=== PATIENT | female | born 1980 | race Caucasian/White ===

== ENCOUNTER 2016-12-07 13:24 | Outpatient (CLI) | payer MEDICAID | END 2016-12-07 13:25 | disposition home or self-care (01) | DX: M77.32 Calcaneal spur, left foot (principal) ==

== ENCOUNTER 2017-04-23 13:52 | Emergency (ER) | payer MEDICAID ==
[2017-04-23] MEDS ORDERED: LIDOCAINE PATCH 5% TOP STA (14:28)
[2017-04-23] MEDS ORDERED: oxyCOD/ACETAMIN 5 MG/325 MG TABLET PO STA (14:28)
[2017-04-23] MEDS ORDERED: oxyCOD/ACETAMIN 5 MG/325 MG TABLET PO ONE (14:30)
[2017-04-23] MEDS ORDERED: LIDOCAINE PATCH 5% TOP ONE (14:30)
--- NOTE | 2017-04-23 14:49 | ED Physician Documentation ---
History of Present Illness - Stated complaint Stated Complaint: BACK PX - Chief complaint Chief Complaint: Back Pain - Additonal information Additional information: hx from pt 36 y/o f was doing a work out class with a kettle ball on Wednesday started to feel pain in her back pain worsened over the week could not do class Wed went to chiropractor s relief tried NSAID and lido patches motrin and flexeril and ice s relief pain iw right low back, worse with movement, rad to upper right buttock, no numbness or weakness, no urinary incont, no saddle anesthesia denies preg hx narcotic use though a pain clinic, off narcotics for a year, her MALENA confirms this, she weaned herself and does not feel one or two days of pain control will cause a set back, Review of Systems Constitutional: denies: Fever GI: denies: Abdominal Pain : denies: Now EGA Musculoskeletal: reports: Back pain Neurologic: denies: Focal weakness, Numbness PD PAST MEDICAL HISTORY - Past Medical History Past Medical History: No - Past Surgical History Past Surgical History: Yes General: Cholecystectomy Ortho: Shoulder arthroplasty - Present Medications Home Medications: Ambulatory Orders Medication Instructions Recorded Confirmed Ibuprofen [Motrin] 600 mg PO Q6H PRN 04/28/13 04/28/13 Carisoprodol [Soma] 350 mg PO Q8H PRN #15 tablet 04/23/17 Cyclobenzaprine [Flexeril] 04/23/17 Hydroxyzine Pamoate 04/23/17 Ibuprofen [Motrin] 800 mg PO TIDWM PRN #20 tablet 04/23/17 Lidocaine Patch 5% [Lidoderm Patch] 1 each TOP DAILY PRN #10 patch 04/23/17 Metoprolol Succinate 04/23/17 Oxycodone HCl/Acetaminophen 1 each PO Q6HR PRN #8 tablet 04/23/17 [Percocet 5-325 mg Tablet] Venlafaxine [Effexor] 37.5 04/23/17 - Allergies Allergies/Adverse Reactions: Allergies Allergy/AdvReac Type Severity Reaction Status Date / Time azithromycin [From Zithromax] Allergy Intermediate Respiratory Verified 14:09 carbamazepine [From Tegretol] Allergy Intermediate Rash Verified 04/23/17 14:09 erythromycin base Allergy Intermediate Respiratory Verified 04/23/17 14:09 [Erythromycin Base] latex Allergy Intermediate Rash Verified 04/23/17 14:09 - Social History Does the pt smoke?: Yes Smoking Status: Current every day smoker Does the pt drink ETOH?: No Does the pt have substance abuse?: No - Immunizations Immunizations are current?: Yes - POLST Patient has POLST: No PD ED PE NORMAL - Vitals Vital signs reviewed: Yes - General General: Alert and oriented X 3 - HEENT HEENT: PERRL - Neck Neck: Supple, no meningeal sign - Cardiac Cardiac: RRR - Respiratory Respiratory: No respiratory distress, Clear bilaterally - Abdomen Abdomen: Soft, Non tender - Back Back: No spinal TTP (and no warmth erythema or swelling), Other (right low back TTP and very limited ROM) - Derm Derm: Normal color - Neuro Neuro: Alert and oriented X 3, No motor deficit, No sensory deficit, Other ( diff to assess strenth as all movement causes severe pain but there is at least some effort for hip flex knee ext foor dorsi planta and great toe ext, no clonus , denies saddle anesthesia) Results - Vitals Vitals: Vital Signs - 24 hr 04/23/17 04/23/17 13:56 15:07 Temperature 36.6 C 36.8 C Heart Rate 98 96 Respiratory 18 20 Rate Blood Pressure 158/97 H 125/75 O2 Saturation 99 98 Oxygen O2 Source Room air PD MEDICAL DECISION MAKING - ED course ED course: no MALENA or narcotic WMPM report for last yr d/w pt at length - she has already tried NSAID, flexeril, NSAID and lido patches ice heat etc s relief she does not think narcotics will cause a relapse I am very hesitant to prescribe a naroctic but is in severe pain barely able to get into the chair and has already tried all my usual recommendations will write for very small amt and change flexeril to soma Departure - Departure Disposition: 01 Home, Self Care Clinical Impression: Back pain Qualifiers: Back pain location: low back pain Chronicity: acute Back pain laterality: right Sciatica presence: without sciatica Qualified Code(s): M54.5 - Low back pain Condition: Good Instructions: ED Low Back Pain Injury Prescriptions: Oxycodone HCl/Acetaminophen [Percocet 5-325 mg Tablet] 1 each PO Q6HR PRN #8 tablet PRN Reason: Severe Pain Lidocaine Patch 5% [Lidoderm Patch] 1 each TOP DAILY PRN #10 patch PRN Reason: Pain Ibuprofen [Motrin] 800 mg PO TIDWM PRN #20 tablet PRN Reason: Pain Carisoprodol [Soma] 350 mg PO Q8H PRN #15 tablet PRN Reason: muscle spasm Comments: `Please follow up with your PMD about your blood pressure - it was high today Forms: Activity restrictions Discharge Date/Time: 04/23/17 15:19
[2017-04-23 15:08] VITALS: BP 125/75
[2017-04-23] MEDS ORDERED: DEXAMETHASONE 10 MG/ML VIAL PO STA (15:11)
[2017-04-23] MEDS ORDERED: DEXAMETHASONE 10 MG/ML VIAL ONE (15:11)
== END 2017-04-23 15:19 | disposition home or self-care (01) ==
LOC: ED 13:52
DX: M54.5 Low back pain (principal); F17.200 Nicotine dependence, unspecified, uncomplicated
CPT/HCPCS: 99283; A9270

== ENCOUNTER 2017-12-08 20:33 | Emergency (ER) | payer MEDICAID ==
[2017-12-08 20:43] VITALS: BP 153/85
--- NOTE | 2017-12-08 22:23 | ED Physician Documentation ---
History of Present Illness - Stated complaint Stated Complaint: HEEL PX - Chief complaint Chief Complaint: Ext Problem - History obtained from History obtained from: Patient (pt states that she has known heel spurs. she states that she has had pain on the bottom of her foot for the past couple days. worse in the AM, worse afte sitting. no fevers. no trauma) Review of Systems Skin: reports: Rash, Lesions Musculoskeletal: reports: Other (foot pain with walking) Neurologic: reports: Other (no numbness or tingling to her foot.). denies: Numbness PD PAST MEDICAL HISTORY - Past Medical History Past Medical History: No - Past Surgical History Past Surgical History: Yes General: Cholecystectomy Ortho: Shoulder arthroplasty - Present Medications Home Medications: Ambulatory Orders Medication Instructions Recorded Confirmed Ibuprofen [Motrin] 600 mg PO Q6H PRN 04/28/13 04/28/13 Carisoprodol [Soma] 350 mg PO Q8H PRN #15 tablet 04/23/17 Cyclobenzaprine [Flexeril] 04/23/17 Ibuprofen [Motrin] 800 mg PO TIDWM PRN #20 tablet 04/23/17 Lidocaine Patch 5% [Lidoderm Patch] 1 each TOP DAILY PRN #10 patch 04/23/17 Metoprolol Succinate 04/23/17 Oxycodone HCl/Acetaminophen 1 each PO Q6HR PRN #8 tablet 04/23/17 [Percocet 5-325 mg Tablet] Venlafaxine [Effexor] 37.5 04/23/17 hydrOXYzine pamoate [Hydroxyzine 04/23/17 Pamoate] - Allergies Allergies/Adverse Reactions: Allergies Allergy/AdvReac Type Severity Reaction Status Date / Time azithromycin [From Zithromax] Allergy Intermediate Respiratory Verified 14:09 carbamazepine [From Tegretol] Allergy Intermediate Rash Verified 04/23/17 14:09 erythromycin base Allergy Intermediate Respiratory Verified 04/23/17 14:09 [Erythromycin Base] latex Allergy Intermediate Rash Verified 04/23/17 14:09 - Social History Does the pt smoke?: Yes Smoking Status: Current every day smoker Does the pt drink ETOH?: No Does the pt have substance abuse?: No - Immunizations Immunizations are current?: Yes - POLST Patient has POLST: No PD ED PE NORMAL - General General: Alert and oriented X 3, No acute distress - Cardiac Cardiac: Strong equal pulses (DP) - Respiratory Respiratory: No respiratory distress - Derm Derm: Normal color, No rash - Extremities Extremities: No edema. No: No tenderness to palpate (on the plantar aspect of her foot. ) - Neuro Neuro: Other (sensation intact to light touch to her foot. ) - Psych Psych: Normal mood, Normal affect Results - Vitals Vitals: Vital Signs - 24 hr 12/08/17 20:39 Temperature 36.8 C Heart Rate 101 H Respiratory 17 Rate Blood Pressure 153/85 H O2 Saturation 99 Oxygen O2 Source Room air PD MEDICAL DECISION MAKING - ED course Complexity details: considered differential, d/w patient ED course: pt with hx and PE c/W plantar fasciitis. We discussed treatments. no indication for x-rays. pt to follow up with her PCM. Departure - Departure Disposition: Home, Self Care Clinical Impression: Plantar fasciitis Condition: Good Instructions: Plantar Fasciitis, Plantar Fasciitis Tx Follow-Up: Abi Bellamy ARNP [Primary Care Provider] - Comments: Return to the ER for any new or worsening symptoms, Discharge Date/Time: 12/08/17 22:25
== END 2017-12-08 22:25 | disposition home or self-care (01) ==
LOC: ED 20:33
DX: M72.2 Plantar fascial fibromatosis (principal); F17.200 Nicotine dependence, unspecified, uncomplicated
CPT/HCPCS: 99282; 99283

== ENCOUNTER 2019-01-27 11:44 | Outpatient (CLI) | payer MEDICAID ==
[2019-01-27 12:06] LABS: BASOPHILS # (AUTO) 0.1 10^3/uL (0.0-0.1); BASOPHILS % (AUTO) 1.2 %; EOSINOPHILS % (AUTO) 0.5 %; HGB - HEMOGLOBIN 14.2 g/dL (12.0-16.0); LYMPHOCYTES # (AUTO) 2.3 10^3/uL (1.5-3.5); LYMPHOCYTES % (AUTO) 22.4 %; MEAN CORPUSCULAR HEMOGLOBIN 31.1 pg (27.0-31.0); MEAN CORPUSCULAR HGB CONC 35.5 g/dL (32.0-36.0); MEAN CORPUSCULAR VOLUME 87.7 fL (81.0-99.0); MEAN PLATELET VOLUME 7.9 fL (7.9-10.8); MONOCYTES # (AUTO) 0.5 10^3/uL (0.0-1.0); MONOCYTES % (AUTO) 4.8 %; NEUTROPHILS # (AUTO) 7.4 10^3/uL (1.5-6.6); NEUTROPHILS % (AUTO) 71.1 %; PLT - PLATELET COUNT 298 10^3/uL (130-450); RED BLOOD COUNT 4.57 10^6/uL (4.20-5.40); WHITE BLOOD COUNT 10.3 x10^3/uL (4.8-10.8)
[2019-01-27 12:26] LABS: ALBUMIN 4.6 g/dL (3.2-5.5); ALBUMIN/GLOBULIN RATIO 1.5 (1.0-2.2); BILIRUBIN,TOTAL 0.7 mg/dL (0.2-1.0); CREATININE 0.6 mg/dL (0.4-1.0); TOTAL PROTEIN 7.6 g/dL (6.7-8.2)
[2019-01-27 12:46] LABS: CREATININE,URINE 50.6 mg/dL
[2019-01-27 13:14] LABS: TOTAL PROTEIN,URINE TIMED < 6 mg/dL
[2019-01-27 13:52] LABS: CALCIUM 9.3 mg/dL (8.5-10.3)
[2019-01-28 13:02] LABS: HEPATITIS B SURFACE ANTIGEN NON-REACTIVE (NON-REACTIVE); HEPATITIS C ANTIBODY NON-REACTIVE (NON-REACTIVE)
[2019-01-28 17:41] LABS: HIV AG/AB 4TH GEN NON-REACTIVE (NON-REACTIVE)
== END 2019-01-27 11:45 | disposition home or self-care (01) ==
LOC: LAB 11:44
PROVIDERS: ATTEND Obstetrics & Gynecology
DX: Z36.89 Encounter for other specified antenatal screening (principal)
CPT/HCPCS: 36415; 80053; 81599; 82570; 84156; 85025; 86592; 86762; 86787; 86803; 86850; 86900; 86901; 87340; 87389

== ENCOUNTER 2019-02-20 11:14 | Outpatient (CLI) | payer MEDICAID | END 2019-02-20 11:15 | disposition home or self-care (01) | LOC: LAB 11:14 | PROVIDERS: ATTEND Obstetrics & Gynecology | DX: Z13.71 Encounter for nonprocreative screening for genetic disease carrier status (principal); Z36.8A Encounter for antenatal screening for other genetic defects | CPT/HCPCS: 36415; 81220; 81243; 81329; 81599; 83021 ==

== ENCOUNTER 2019-02-24 23:25 | Outpatient (CLI) | payer MEDICAID ==
--- NOTE | 2019-02-25 00:44 | Ultrasound Report ---
Reason: TEST POSITIVE, HTN Procedure Date: 02/24/2019 Accession Number: [id number] / [id number] Procedure: US - OB First Trimester CPT Code: FULL RESULT: EXAM: LIMITED OBSTETRICAL ULTRASOUND EARLY SECOND TRIMESTER EXAM DATE: 02/24/2019 11:35 PM. CLINICAL HISTORY: TEST POSITIVE, HTN. COMPARISON: None. TECHNIQUE: Real-time sonographic evaluation of the fetus performed by the manager telecom. Multiple medical representative static images were saved for review. DATING: Established EGA 15 weeks 0 days with MASON 08/18/2019 based on LMP. EGA 14 weeks 0 day with MASON 08/25/2019 based on the current ultrasound. GENERAL EVALUATION Watson . Cardiac activity: 152 bpm. movement: Visualized. Presentation: Cephalic. Placenta: Posterior position. No evidence for previa. Amniotic fluid: Subjectively normal. BIOMETRY Bi-Parietal Diameter (BPD): 2.64 cm, 14 weeks 4 days Head Circumference (HC): 9.53 cm, 14 weeks 2 days Abdominal Circumference (AC): 7.45 cm, 13 weeks 6 days Femur Length (FL): 1.11 cm, 13 weeks 2 days ANATOMY Limited visualization of anatomy appears unremarkable. MATERNAL STRUCTURES Uterus: 1.7 cm posterior intramural leiomyoma. Cervix: Long and closed. Right ovary/adnexa: Unremarkable. Left ovary/adnexa: Unremarkable. Free fluid: None. IMPRESSION: 1. Watson live intrauterine with gestational age 15 weeks 0 days based on LMP 2. size is within expected limits for assigned dating. 3. Normal early second trimester anatomy. No anatomic abnormalities are seen at this time. Note: Detailed anatomic survey at 18-22 weeks is recommended for all fetuses evaluated prior to 18 weeks, as some structural abnormalities may be inapparent at earlier gestational ages. ASHA The call report notification system was initiated by Dr. Lopez Stafford at 12:37 AM on 02/25/2019. The above call report findings were discussed with Coco Rodrigues CNM by Dr. Lopez Stafford at 12:43 AM on 02/25/2019.
== END 2019-02-24 23:26 | disposition home or self-care (01) ==
LOC: DI 23:25
PROVIDERS: ATTEND Registered Nurse
DX: Z32.01 Encounter for pregnancy test, result positive (principal); O16.2 Unspecified maternal hypertension, second trimester; Z3A.15 15 weeks gestation of pregnancy
CPT/HCPCS: 76801

== ENCOUNTER 2019-03-20 10:23 | Outpatient (CLI) | payer MEDICAID | END 2019-03-20 10:24 | disposition home or self-care (01) | LOC: LAB 10:23 | PROVIDERS: ATTEND Obstetrics & Gynecology | DX: Z36.8A Encounter for antenatal screening for other genetic defects (principal) | CPT/HCPCS: 36415; 81599; 82105 ==

== ENCOUNTER 2019-04-07 11:13 | Outpatient (CLI) | payer MEDICAID ==
--- NOTE | 2019-04-07 14:01 | Ultrasound Report ---
Reason: ENCOUNTER FOR OTHER SPECIFIED SCREENING Procedure Date: 04/07/2019 Accession Number: [id number] / [id number] Procedure: US - OB Detailed Eval CPT Code: FULL RESULT: EXAM: COMPLETE OBSTETRICAL ULTRASOUND EXAM DATE: 04/07/2019 12:30 PM. CLINICAL HISTORY: anatomic survey. COMPARISON: OB FIRST TRIMESTER 02/24/2019 11:35 PM. TECHNIQUE: Real-time sonographic evaluation of the fetus performed by the heel shaver. Multiple sales promotion representative static images were saved for review. DATING: Established EGA 20 weeks 1 day with MASON 08/24/2019 based on working obstetric date. EGA 21 weeks 0 days with MASON 08/18/2019 based on LMP. EGA 19 weeks 6 days with MASON 08/26/2019 based on the current ultrasound. GENERAL EVALUATION Watson . Cardiac activity: 159 bpm. movement: Visualized. Presentation: Transverse. Placenta: Posterior position. No evidence for previa. Umbilical cord: 3 vessel cord. Central placental cord origin. Amniotic fluid: Subjectively normal. MVP 3.8 cm. BIOMETRY Bi-Parietal Diameter (BPD): 4.6 cm, 19 weeks 5 days Head Circumference (HC): 16.5 cm, 19 weeks 2 days Abdominal Circumference (AC): 16 cm, 21 weeks 1 day Femur Length (FL): 3.0 cm, 19 weeks 1 day Estimated Weight: 330 g, 41st percentile for 20 weeks 1 day. ANATOMY The intracranial structures, profile, face/nose/lips, spine, 4 chamber heart and outflow tracts, abdominal wall and cord insertion, diaphragm, kidneys, bladder, and extremities were visualized and demonstrate no abnormality. While stomach visualization is limited on this examination, the 02/24/2019 study demonstrates the cardio-gastric relationship to be normal. MATERNAL STRUCTURES Uterus: Unremarkable. Cervix: Long and closed. Transabdominal length 4.1 cm. Right ovary/adnexa: Unremarkable. Left ovary/adnexa: Unremarkable. Free fluid: None. IMPRESSION: 1. Watson live intrauterine with gestational age 20 weeks 1 day based on working obstetric due date. 2. Estimated weight is within expected limits for assigned dating. 3. Normal anatomic survey. No anatomic abnormalities are detected at this time. RADIA
== END 2019-04-07 11:14 | disposition home or self-care (01) ==
LOC: DI 11:13
PROVIDERS: ATTEND Obstetrics & Gynecology
DX: Z36.89 Encounter for other specified antenatal screening (principal)
CPT/HCPCS: 76811

== ENCOUNTER 2019-04-17 08:00 | Outpatient (CLI) | payer MEDICAID ==
[2019-04-17 22:29] LABS: CANDIDA GROUP DNA POSITIVE (NEGATIVE); CANDIDA KRUSEI DNA NEGATIVE (NEGATIVE); TRICHOMONAS VAGINALIS DNA NEGATIVE (NEGATIVE)
== END 2019-04-17 23:59 | disposition home or self-care (01) ==
LOC: LAB.R 08:00
PROVIDERS: ATTEND Nurse Practitioner Obstetrics & Gynecology
DX: N76.0 Acute vaginitis (principal); R82.79 Other abnormal findings on microbiological examination of urine
CPT/HCPCS: 87086; 87661; 87801

== ENCOUNTER 2019-05-22 12:29 | Outpatient (CLI) | payer MEDICAID ==
[2019-05-22 13:28] LABS: HGB - HEMOGLOBIN 11.3 g/dL (12.0-16.0); MEAN CORPUSCULAR HEMOGLOBIN 31.9 pg (27.0-31.0); MEAN CORPUSCULAR HGB CONC 35.8 g/dL (32.0-36.0); MEAN CORPUSCULAR VOLUME 89.3 fL (81.0-99.0); MEAN PLATELET VOLUME 9.9 fL (7.9-10.8); RED BLOOD COUNT 3.54 10^6/uL (4.20-5.40); RED CELL DISTRIBUTION WIDTH 12.1 % (12.0-15.0); WHITE BLOOD COUNT 10.9 x10^3/uL (4.8-10.8)
[2019-05-22 13:40] LABS: CREATININE,URINE 67.5 mg/dL; PROTEIN/CREATININE RATIO,URINE 0.1 (<=0.2)
[2019-05-22 13:44] LABS: CREATININE 0.7 mg/dL (0.4-1.0); URIC ACID 4.6 mg/dL (2.6-7.2)
== END 2019-05-22 12:30 | disposition home or self-care (01) ==
LOC: LAB 12:29
PROVIDERS: ATTEND Nurse Practitioner Obstetrics & Gynecology
DX: O09.90 Supervision of high risk pregnancy, unspecified, unspecified trimester (principal); Z36.89 Encounter for other specified antenatal screening
CPT/HCPCS: 36415; 82565; 82570; 84156; 84450; 84550; 85027; 86850

== ENCOUNTER 2020-01-05 08:00 | Outpatient (CLI) | payer MEDICAID | END 2020-01-05 23:59 | disposition home or self-care (01) | LOC: LAB.R 08:00 | PROVIDERS: ATTEND Physician Assistant Medical | DX: N32.89 Other specified disorders of bladder (principal); R35.0 Frequency of micturition | CPT/HCPCS: 87086 ==

== ENCOUNTER 2020-02-05 16:47 | Outpatient (CLI) | payer SELFPAY | END 2020-02-05 16:48 | disposition home or self-care (01) | LOC: COV 16:47 | PROVIDERS: ATTEND Family Medicine | DX: R05 Cough (principal); R50.9 Fever, unspecified; Z20.828 Contact with and (suspected) exposure to other viral communicable diseases | CPT/HCPCS: 81599 ==

== ENCOUNTER 2020-10-18 18:19 | Emergency (ER) | payer MEDICAID, OTHER ==
[2020-10-18] MEDS ORDERED: IBUPROFEN 800 MG TABLET PO STA (19:09)
[2020-10-18] MEDS ORDERED: oxyCODONE/ACET 5/325 Prepack 4 PO STA (19:09)
[2020-10-18] MEDS ORDERED: CLINDAMYCIN 150 MG CAPSULE PO STA (19:09)
--- NOTE | 2020-10-18 19:11 | ED Physician Documentation ---
PD HPI HEENT - Stated complaint Stated Complaint: MOUTH PX - Chief complaint Chief Complaint: Heent - History obtained from History obtained from: Patient (2 days of worsening left maxillary dental pain. She had a gingival abscess which popped prior to arrival. Pain is severe. No fevers.) Review of Systems Constitutional: reports: Reviewed and negative Eyes: reports: Reviewed and negative Ears: reports: Reviewed and negative PD PAST MEDICAL HISTORY - Past Medical History Past Medical History: Yes Cardiovascular: Hypertension Respiratory: Asthma - Past Surgical History Past Surgical History: Yes General: Cholecystectomy Ortho: Shoulder arthroplasty - Present Medications Home Medications: Ambulatory Orders Medication Instructions Recorded Confirmed Clindamycin [Cleocin] 300 mg PO Q6H 10 Days capsule 10/18/20 Melatonin/Pyridoxine [Melatonin 5 5 mg PO DAILY 10/18/20 10/18/20 mg Tablet] Oxycodone HCl/Acetaminophen 1 - 2 each PO Q6H PRN #14 tablet 10/18/20 [Percocet 5-325 mg Tablet] - Allergies Allergies/Adverse Reactions: Allergies Allergy/AdvReac Type Severity Reaction Status Date / Time azithromycin [From Zithromax] Allergy Intermediate Respiratory Verified 10/18/20 18:28 carbamazepine [From Tegretol] Allergy Intermediate Rash Verified 10/18/20 18:28 erythromycin base Allergy Intermediate Respiratory Verified 10/18/20 18:28 [Erythromycin Base] latex Allergy Intermediate Rash Verified 10/18/20 18:28 - Social History Does the pt smoke?: Yes Smoking Status: Current every day smoker Does the pt drink ETOH?: No Does the pt have substance abuse?: No Substance Use and Type: Marijuana, CBD oil / Products - Immunizations Immunizations are current?: Yes - POLST Patient has POLST: No PD ED PE NORMAL - Vitals Vital signs reviewed: Yes - General General: Alert and oriented X 3, No acute distress - HEENT HEENT: PERRL, EOMI, Other (Generally poor dentition, there is a left maxillary premolar that is tender. No trismus or sublingual edema. No facial swelling.) - Neck Neck: Supple, no meningeal sign, No bony TTP - Neuro Neuro: Alert and oriented X 3, Normal speech Results - Vitals Vitals: Vital Signs - 24 hr 10/18/20 18:25 Temperature 36.8 C Heart Rate 99 Respiratory 16 Rate Blood Pressure 160/82 H O2 Saturation 100 Oxygen O2 Source Room air Departure - Departure Disposition: Home, Self Care Clinical Impression: Dental abscess Condition: Good Record reviewed to determine appropriate education?: Yes Instructions: ED Abscess Dental Prescriptions: Clindamycin [Cleocin] 300 mg PO Q6H 10 Days capsule Oxycodone HCl/Acetaminophen [Percocet 5-325 mg Tablet] 1 - 2 each PO Q6H PRN #14 tablet PRN Reason: pain Comments: Followup with your dentist as scheduled, return if worse. Do not drink or drive while taking narcotic pain medication. Note that many narcotic pain relievers also contain Tylenol/acetaminophen. Please ensure that your total dose of acetaminophen from all sources does not exceed 3 g (3000 mg) per day. You may get constipated while on this medication. Take a stool softener such as Colace twice a day while you are on it. Also add an [id number] laxative such as senna or MiraLAX on any day that you do not have a bowel movement. If you received a narcotic pain medication or sedative while in the emergency department, do not drive for the next 24 hours.
[2020-10-18 19:14] VITALS: BP 157/91
== END 2020-10-18 19:29 | disposition home or self-care (01) ==
LOC: ED 18:19
DX: K04.7 Periapical abscess without sinus (principal); I10 Essential (primary) hypertension; F17.200 Nicotine dependence, unspecified, uncomplicated
CPT/HCPCS: 99282; 99283; A9270

== ENCOUNTER 2020-12-23 17:07 | Outpatient (CLI) | payer MEDICAID ==
[2020-12-23 20:07] LABS: BASOPHILS % (AUTO) 0.4 %; EOSINOPHILS # (AUTO) 0.1 10^3/uL (0.0-0.7); EOSINOPHILS % (AUTO) 1.3 %; HGB - HEMOGLOBIN 13.3 g/dL (12.0-16.0); LYMPHOCYTES # (AUTO) 2.4 10^3/uL (1.5-3.5); LYMPHOCYTES % (AUTO) 31.3 %; MEAN CORPUSCULAR HEMOGLOBIN 31.6 pg (27.0-31.0); MEAN CORPUSCULAR HGB CONC 35.3 g/dL (32.0-36.0); MEAN CORPUSCULAR VOLUME 89.5 fL (81.0-99.0); MEAN PLATELET VOLUME 9.9 fL (7.9-10.8); MONOCYTES # (AUTO) 0.3 10^3/uL (0.0-1.0); MONOCYTES % (AUTO) 3.6 %; NEUTROPHILS # (AUTO) 4.9 10^3/uL (1.5-6.6); NEUTROPHILS % (AUTO) 63.1 %; PLT - PLATELET COUNT 304 10^3/uL (130-450); RED BLOOD COUNT 4.21 10^6/uL (4.20-5.40); WHITE BLOOD COUNT 7.7 x10^3/uL (4.8-10.8)
[2020-12-23 20:21] LABS: RHEUMATOID FACTOR NEGATIVE (Negative)
[2020-12-23 20:22] LABS: ALBUMIN 4.3 g/dL (3.2-5.5); ALBUMIN/GLOBULIN RATIO 1.9 (1.0-2.2); ALKALINE PHOSPHATASE 56 IU/L (42-121); ALT ALANINE AMINOTRANSFERASE 12 IU/L (10-60); AST ASPARTATE AMINOTRANSFERASE 13 IU/L (10-42); BILIRUBIN,TOTAL 0.5 mg/dL (0.2-1.0); BUN - BLOOD UREA NITROGEN 13 mg/dL (6-20); CALCIUM 9.3 mg/dL (8.5-10.3); CARBON DIOXIDE - CO2 24 mmol/L (21-32); CHLORIDE 104 mmol/L (101-111); CREATININE 0.8 mg/dL (0.4-1.0); GLUCOSE 88 mg/dL (70-100); TOTAL PROTEIN 6.6 g/dL (6.7-8.2)
[2020-12-23 20:53] LABS: CRP - C-REACTIVE PROTEIN < 1.0 mg/dL (0-1.0)
== END 2020-12-23 17:08 | disposition home or self-care (01) ==
LOC: LAB.S 17:07
PROVIDERS: ATTEND Physician Assistant
DX: M35.3 Polymyalgia rheumatica (principal); F41.1 Generalized anxiety disorder; R53.83 Other fatigue; J45.909 Unspecified asthma, uncomplicated; I10 Essential (primary) hypertension; F17.200 Nicotine dependence, unspecified, uncomplicated
CPT/HCPCS: 36415; 80053; 84443; 85025; 85651; 86140; 86200; 86430

== ENCOUNTER 2021-01-13 09:50 | Outpatient (CLI) | payer MEDICAID ==
--- NOTE | 2021-01-13 10:22 | XRAY Report ---
PROCEDURE: Hips 2V BILAT INDICATIONS: HIP PAIN, CHRONIC TECHNIQUE: 3 views of the hip were acquired. COMPARISON: None FINDINGS: Bones: No fractures or dislocations. No suspicious bony lesions. No evidence of avascular necrosis of femoral head. The visualized pelvic ring appears intact. Soft tissues: No suspicious soft tissue calcifications or masses. IMPRESSION: Unremarkable radiographic examination of pelvis and bilateral hips. If indicated, MRI of hips can be done for further evaluation of internal derangement. Reviewed by: Singh Davila MD on 01/13/2021 10:20 AM [facility] Approved by: Singh Davila MD on 01/13/2021 10:20 AM [facility] Station ID: [id number]
== END 2021-01-13 09:51 | disposition home or self-care (01) ==
LOC: DI.S 09:50
PROVIDERS: ATTEND Physician Assistant
DX: M25.552 Pain in left hip (principal); M25.551 Pain in right hip

== ENCOUNTER 2021-03-01 14:37 | Outpatient (CLI) | payer MEDICAID ==
--- NOTE | 2021-03-01 16:55 | Ultrasound Report ---
PROCEDURE: Pelvic w/Transvaginal INDICATIONS: MENORRHAGIA, DYSMENORRHEA TECHNIQUE: Real-time scanning was performed of the pelvic organs, with image documentation. Additional endovagi nal scanning was necessary due to incomplete visualization of the adnexal and endometrial structures by transabdominal scanning. COMPARISON: None. FINDINGS: No pathologic free abdominal or pelvic fluid. Uterus: Uterus is normal in size at 8.9 x 5.1 x 6.0 cm. The endometrium measures 12 mm in combined thickness. Within the posterior aspect of the uterine fundus is a hypoechoic mass consistent with an intramural fibroid measuring 3.0 x 2.0 x 2.6 cm. Ovaries: The right ovary measures 2.1 x 2.0 x 1.8 cm. The left ovary measures 3.4 x 2.7 x 2.7 cm. Wi thin the left ovary is an anechoic cystic lesion measuring 2.0 x 1.7 x 2.0 cm most consistent with a dominant follicle. No suspicious cystic or solid mass. IMPRESSION: Intramural fibroid. Otherwise unremarkable appearance of the uterus. Unremarkable appearance of the ovaries for patient's age. Reviewed by: Jean Manuel DO on 03/01/2021 3:54 PM [facility] Approved by: Jean Manuel DO on 03/01/2021 3:54 PM [facility] Station ID: [id number]
== END 2021-03-01 14:38 | disposition home or self-care (01) ==
LOC: DI 14:37
PROVIDERS: ATTEND Obstetrics & Gynecology
DX: D25.1 Intramural leiomyoma of uterus (principal)

== ENCOUNTER 2021-03-05 08:45 | Outpatient (CLI) | payer MEDICAID | END 2021-03-05 08:46 | disposition home or self-care (01) | LOC: DI 08:45 | PROVIDERS: ATTEND Obstetrics & Gynecology | DX: I35.1 Nonrheumatic aortic (valve) insufficiency (principal) | CPT/HCPCS: 93306 ==

== ENCOUNTER 2021-03-07 15:06 | Outpatient (CLI) | payer MEDICAID | END 2021-03-07 15:07 | disposition home or self-care (01) | LOC: COV 15:06 | PROVIDERS: ATTEND Obstetrics & Gynecology | DX: Z01.812 Encounter for preprocedural laboratory examination (principal); N92.0 Excessive and frequent menstruation with regular cycle; N94.6 Dysmenorrhea, unspecified; Z20.822 Contact with and (suspected) exposure to COVID-19 ==

== ENCOUNTER 2021-03-20 08:00 | Outpatient (CLI) | payer MEDICAID ==
[2021-03-21 13:10] LABS: BILIRUBIN,URINE NEGATIVE (NEGATIVE); GLUCOSE, URINE (UA) NEGATIVE (NEGATIVE); KETONES,URINE (UA) NEGATIVE (NEGATIVE); LEUKOCYTE ESTERASE, URINE NEGATIVE (NEGATIVE); NITRITE,URINE NEGATIVE (NEGATIVE); OCCULT BLOOD,URINE TRACE-LYSE (NEGATIVE); PH,URINE 7.5 PH (5.0-7.5); PROTEIN,URINE NEGATIVE (NEGATIVE); UROBILINOGEN,URINE 0.2 (NORMAL) E.U./dL (NORMAL)
[2021-03-21 13:11] LABS: CLARITY,URINE HAZY (CLEAR)
[2021-03-21 13:31] LABS: AMORPHOUS SEDIMENT,UR Few /LPF; BACTERIA,URINE Rare /HPF (None Seen); MUCUS,URINE Few Strands; RBC,URINE 0-5 /HPF (0-5); SQUAMOUS EPITHELIAL CELL,UR FEW Squamous (<= Few); WBC,URINE 0-3 /HPF (0-5)
== END 2021-03-20 23:59 | disposition home or self-care (01) ==
LOC: LAB.R 08:00
PROVIDERS: ATTEND Obstetrics & Gynecology
DX: R30.0 Dysuria (principal)
CPT/HCPCS: 81001; 87086

== ENCOUNTER 2021-03-20 10:49 | Outpatient (CLI) | payer MEDICAID ==
[2021-03-20 10:58] LABS: HCT - HEMATOCRIT 41.4 % (37.0-47.0); HGB - HEMOGLOBIN 14.7 g/dL (12.0-16.0); MEAN CORPUSCULAR HEMOGLOBIN 32.3 pg (27.0-31.0); MEAN CORPUSCULAR HGB CONC 35.5 g/dL (32.0-36.0); MEAN PLATELET VOLUME 9.1 fL (7.9-10.8); RED BLOOD COUNT 4.55 10^6/uL (4.20-5.40); RED CELL DISTRIBUTION WIDTH 12.5 % (12.0-15.0); WHITE BLOOD COUNT 9.1 x10^3/uL (4.8-10.8)
== END 2021-03-20 10:50 | disposition home or self-care (01) ==
LOC: LAB 10:49
PROVIDERS: ATTEND Obstetrics & Gynecology
DX: Z90.710 Acquired absence of both cervix and uterus (principal); R53.83 Other fatigue; R30.0 Dysuria
CPT/HCPCS: 36415; 81001; 85027; 87086

== ENCOUNTER 2021-05-26 21:42 | Emergency (ER) | payer OTHER, MEDICAID ==
[2021-05-26 21:56] VITALS: BP 157/84
--- NOTE | 2021-05-26 23:31 | ED Physician Documentation ---
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 Sesar, at approximately 8:15 PM, she was taking out bag of trash and had sudden, sharp stabbing pain to inner (medial) aspect of her right knee. She then noticed that a needle was protruding from the bag and this was what stuck her in the knee. She is UTD on immunizations. The needle was in a bag where there would have been no pet owner/photographer access Review of Systems Constitutional: denies: Fever Skin: reports: Other (puncture wound to right knee) Neurologic: denies: Focal weakness, Numbness PD PAST MEDICAL HISTORY - Past Medical History Past Medical History: Yes Cardiovascular: Hypertension Respiratory: Asthma Psych: Depression, Anxiety - Past Surgical History Past Surgical History: Yes General: Cholecystectomy Ortho: Shoulder arthroplasty /FUR DRUMMER: Hysterectomy - Present Medications Home Medications: Ambulatory Orders Medication Instructions Recorded Confirmed Cyclobenzaprine [Flexeril] 10 mg PO TID PRN 03/06/21 03/12/[address] [Voltaren] 75 mg PO BID PRN 03/06/21 03/12/21 hydrOXYzine HCL [Hydroxyzine HCl] 25 - 50 mg PO QPM PRN 03/06/21 03/12/21 Ciprofloxacin HCl [Cipro] 500 mg PO BID #14 tablet 05/27/21 - Allergies Allergies/Adverse Reactions: Allergies Allergy/AdvReac Type Severity Reaction Status Date / Time azithromycin [From Zithromax] Allergy Intermediate Respiratory Verified 05/26/21 21:56 carbamazepine [From Tegretol] Allergy Intermediate Rash Verified 05/26/21 21:56 erythromycin base Allergy Intermediate Respiratory Verified 05/26/21 21:56 [Erythromycin Base] latex Allergy Intermediate Rash Verified 05/26/21 21:56 - Social History Does the pt smoke?: Yes Smoking Status: Current every day smoker Does the pt drink ETOH?: No Does the pt have substance abuse?: No - Immunizations Immunizations are current?: Yes - POLST Patient has POLST: No PD ED PE NORMAL - Vitals Vital signs reviewed: Yes - General General: Alert and oriented X 3, No acute distress, Well developed/nourished - Derm Derm: Normal color, Warm and dry - Extremities Extremities: No tenderness to palpate, Normal ROM s pain, No edema, Other (puncture wound to medial aspect of right knee) Results - Vitals Vitals: Oxygen O2 Source Room air - Labs Labs: Laboratory Tests 05/26/21 05/26/21 00:06 00:06 WBC 9.3 RBC 4.43 Hgb 14.4 Hct 40.7 MCV 91.9 MCH 32.5 H MCHC 35.4 RDW 13.2 Plt Count 308 MPV 9.8 Sodium 137 Potassium 3.4 L Chloride 106 Carbon Dioxide 24 Anion Gap 7.0 BUN 12 Creatinine 0.9 Estimated GFR (MDRD) 69 L Glucose 104 H Calcium 8.8 Total Bilirubin 0.4 AST 13 ALT < 10 L Alkaline Phosphatase 54 Total Protein 7.7 Albumin 4.7 Globulin 3.0 Albumin/Globulin Ratio 1.6 PD MEDICAL DECISION MAKING - ED course Complexity details: considered differential, d/w patient ED course: We discussed options for prophylaxis. The needle in question would almost certainly have been used on an animal, seeing how it is a veterinary office and in an area where pet owners do not have access (due to COVID restrictions). Given this, there are different concerns regarding potential for transmissible, blood-borne disease. Patient is UTD on immunizations including hepatitis B. She is concerned that there was likely feces in this same bag, and given that this was a puncture wound to a joint (knee) with potential for fecal contamination, an antibiotic is given in ED and prescribed as prophylaxis. We discussed HIV prophylaxis, but this exposure does not appear to be a realistic risk, and antivirals to prophylax against HIV are not indicated. patient indicates understanding of, and agreement with, this concept. Baseline labs drawn according to exposure panel. Departure - Departure Disposition: 01 Home, Self Care Clinical Impression: Needle stick injury Condition: Good Instructions: ED Body Fluid Exp Not HC Worker, ED Wound Puncture General Follow-Up: RODRIGUEZ LOPEZ PA-C [Primary Care Provider] - Within 1 week (Call to arrange for foll) Prescriptions: Ciprofloxacin HCl [Cipro] 500 mg PO BID #14 tablet Discharge Date/Time: 05/27/21 00:52
[2021-05-26] MEDS ORDERED: CIPROFLOXACIN 250 MG TABLET PO STA (23:59)
[2021-05-27 00:11] LABS: HCT - HEMATOCRIT 40.7 % (37.0-47.0); HGB - HEMOGLOBIN 14.4 g/dL (12.0-16.0); MEAN CORPUSCULAR HEMOGLOBIN 32.5 pg (27.0-31.0); MEAN CORPUSCULAR HGB CONC 35.4 g/dL (32.0-36.0); MEAN CORPUSCULAR VOLUME 91.9 fL (81.0-99.0); MEAN PLATELET VOLUME 9.8 fL (7.9-10.8); RED BLOOD COUNT 4.43 10^6/uL (4.20-5.40); RED CELL DISTRIBUTION WIDTH 13.2 % (12.0-15.0); WHITE BLOOD COUNT 9.3 x10^3/uL (4.8-10.8)
[2021-05-27 00:24] LABS: ALBUMIN 4.7 g/dL (3.2-5.5); ALBUMIN/GLOBULIN RATIO 1.6 (1.0-2.2); ALKALINE PHOSPHATASE 54 IU/L (42-121); ALT ALANINE AMINOTRANSFERASE < 10 IU/L (10-60); AST ASPARTATE AMINOTRANSFERASE 13 IU/L (10-42); BILIRUBIN,TOTAL 0.4 mg/dL (0.2-1.0); BUN - BLOOD UREA NITROGEN 12 mg/dL (6-20); CALCIUM 8.8 mg/dL (8.5-10.3); CARBON DIOXIDE - CO2 24 mmol/L (21-32); CHLORIDE 106 mmol/L (101-111); CREATININE 0.9 mg/dL (0.4-1.0); GFR - MDRD 69 (>89); GLUCOSE 104 mg/dL (70-100); POTASSIUM 3.4 mmol/L (3.5-5.0); SODIUM 137 mmol/L (135-145); TOTAL PROTEIN 7.7 g/dL (6.7-8.2)
[2021-05-27] MEDS ORDERED: FLUCONAZOLE 100 MG TABLET PO STA (00:43)
== END 2021-05-27 00:52 | disposition home or self-care (01) ==
LOC: ED 21:42
DX: S81.031A Puncture wound without foreign body, right knee, initial encounter (principal); W46.1XXA Contact with contaminated hypodermic needle, initial encounter; Y93.E9 Activity, other interior property and clothing maintenance; Y92.89 Other specified places as the place of occurrence of the external cause; Y99.0 Civilian activity done for income or pay; F17.200 Nicotine dependence, unspecified, uncomplicated
CPT/HCPCS: 1040M; 36415; 80053; 85027; 86317; 86803; 87389; A9270

== ENCOUNTER 2021-07-11 16:20 | Emergency (ER) | payer MEDICAID ==
[2021-07-11 16:27] VITALS: BP 166/86
[2021-07-11] MEDS ORDERED: KETOROLAC 30 MG/ML VIAL IM STA (16:39)
--- NOTE | 2021-07-11 16:42 | ED Physician Documentation ---
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 Last night she feels like she subluxated and tore her hip and now has severe hip pain. It was just with rotating her body. There was no fall. 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 - Present Medications Home Medications: Ambulatory Orders Medication Instructions Recorded Confirmed Henry Centron Hip Abduction 1 unit TD ONCE #1 07/11/21 HYDROcod/ACETAM 5/325 [[place] 5/325] 1 - 2 tab PO Q6H PRN #15 tablet 07/11/21 - Allergies Allergies/Adverse Reactions: Allergies Allergy/AdvReac Type Severity Reaction Status Date / Time azithromycin [From Zithromax] Allergy Intermediate Respiratory Verified 07/11/21 16:27 carbamazepine [From Tegretol] Allergy Intermediate Rash Verified 07/11/21 16:27 erythromycin base Allergy Intermediate Respiratory Verified 07/11/21 16:27 [Erythromycin Base] latex Allergy Intermediate Rash Verified 07/11/21 16:27 - Social History Does the pt smoke?: Yes Smoking Status: Current every day smoker Does the pt drink ETOH?: No Does the pt have substance abuse?: No - Immunizations Immunizations are current?: Yes - POLST Patient has POLST: No PD ED PE NORMAL - Vitals Vital signs reviewed: Yes - General General: Alert and oriented X 3, No acute distress - Extremities Extremities: Other (Tender over the anterior and lateral hip. Held in flexion and internal rotation.) - Neuro Neuro: Alert and oriented X 3, Normal speech Results - Vitals Vitals: Vital Signs - 24 hr 07/11/21 16:24 Temperature 36.4 C L Heart Rate 80 Respiratory 16 Rate Blood Pressure 166/86 H O2 Saturation 99 Oxygen O2 Source Room air - Rads (name of study) Left hip x-ray Radiology: EMP read contemporaneously (Unremarkable) Departure - Departure Disposition: 01 Home, Self Care Clinical Impression: Hip subluxation Qualifiers: Encounter type: initial encounter Laterality: left Qualified Code(s): S73.002A - Unspecified subluxation of left hip, initial encounter Condition: Good Record reviewed to determine appropriate education?: Yes Instructions: ED Dislocation Hip Traumatic Redu, ED Sprain Hip Prescriptions: Henry Centron Hip Abduction 1 unit TD ONCE #1 HYDROcod/ACETAM 5/325 [[place] 5/325] 1 - 2 tab PO Q6H PRN #15 tablet PRN Reason: Pain Comments: Prescription sent electronically to [facility] in [place]. Call your doctor to arrange a follow-up appointment, make the next available appointment. In the interim, return anytime if worse or if new symptoms develop. I am prescribing a short course of narcotic pain medication for you. These are potentially dangerous and addictive medications that should be used carefully. These medications may constipate you. Take an flpa-jzj-obrdycu stool softener (docusate) twice daily with plenty of water while taking these medications. If you go 24 hours without a bowel movement, take wroz-cff-uvjtclm miralax, per package instructions. Do not drink or drive while taking these medications. If you received narcotic or sedating medications while in the emergency department, do not drive for 24 hours. Store this medication in a safe, secure place and out of reach of children. It is a violation of federal law to give or sell this medication to another person or to use in a manner other than prescribed. The ED will not refill narcotic prescriptions, including prescriptions lost or stolen. To dispose of unwanted medications: 1. [facility] at [address] in [place] has a medication drop box. They accept prescription medications (in pill form) Wednesday through Wednesday 9:00 a.m. to 5:00 p.m. 2. The [place] accepts prescription medications (in pill form only) for disposal year round. Call for more information. 3. Contact the [facility] for the next [facility] sponsored prescription drug collection event. , [phone], or x7310; Note that many narcotic pain relievers also contain Tylenol/acetaminophen. Please ensure that your total dose of acetaminophen from all sources does not exceed 3 g (3000 mg) per day. Forms: Activity restrictions Discharge Date/Time: 07/11/21 17:25
--- NOTE | 2021-07-11 17:47 | XRAY Report ---
PROCEDURE: Hip w/Pelvis 2-3V LT INDICATIONS: hip pain TECHNIQUE: AP pelvis with lateral view(s) of the left hip(s). COMPARISON: None. FINDINGS: Bones: No fractures or dislocations. Pelvic ring appears intact. No suspicious bony lesions. Soft tissues: The visualized bowel gas pattern is normal. No suspicious soft tissue calcifications. IMPRESSION: Unremarkable pelvis and left hip radiographs. No evidence of fracture or subluxation. Reviewed by: Connor Duarte MD on 07/11/2021 4:45 PM AKDT Approved by: Connor Duarte MD on 07/11/2021 4:45 PM AKDT Station ID: [id number]
== END 2021-07-11 17:25 | disposition home or self-care (01) ==
LOC: ED 16:20
DX: S73.002A Unspecified subluxation of left hip, initial encounter (principal); X58.XXXA Exposure to other specified factors, initial encounter; I10 Essential (primary) hypertension; F17.200 Nicotine dependence, unspecified, uncomplicated
CPT/HCPCS: 96372; 99283

== ENCOUNTER 2021-12-19 17:57 | Emergency (ER) | payer MEDICAID ==
[2021-12-19] MEDS ORDERED: HYDROmorphone 1 MG/ML CARPUJECT IM STA (18:09)
[2021-12-19] MEDS ORDERED: diazePAM INJ 5 MG/ML SYRINGE IM STA ×2 (18:10→19:18)
--- NOTE | 2021-12-19 18:22 | ED Physician Documentation ---
History of Present Illness - Stated complaint Stated Complaint: HIP PAIN - Chief complaint Chief Complaint: Trauma Ext - Additonal information Additional information: 41-year-old female who reports a past medical history significant for Mika- Danlos syndrome presents emergency department with acute severe left hip pain. She thinks she may have subluxed it. She states that she was standing and was twisting to speak to one of her sons when she got sudden pain in the hip.No falls or trauma. No fevers. She has had similar in the past. 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 - Present Medications Home Medications: Ambulatory Orders Medication Instructions Recorded Confirmed Denisse Centron Hip Abduction 1 unit TD ONCE #1 07/11/21 HYDROcod/ACETAM 5/325 [[place] 5/325] 1 - 2 tab PO Q6H PRN #15 tablet 07/11/21 HYDROcod/ACETAM 5/325 [[place] 5/325] 1 tablet PO BID PRN #10 tablet 12/19/21 - Allergies Allergies/Adverse Reactions: Allergies Allergy/AdvReac Type Severity Reaction Status Date / Time azithromycin [From Zithromax] Allergy Intermediate Respiratory Verified 12/19/21 18:10 carbamazepine [From Tegretol] Allergy Intermediate Rash Verified 12/19/21 18:10 erythromycin base Allergy Intermediate Respiratory Verified 12/19/21 18:10 [Erythromycin Base] latex Allergy Intermediate Rash Verified 12/19/21 18:10 - Social History Does the pt smoke?: Yes Smoking Status: Current every day smoker Does the pt drink ETOH?: No Does the pt have substance abuse?: No - Immunizations Immunizations are current?: Yes - POLST Patient has POLST: No PD ED PE EXPANDED - General General: Alert, In Pain - Extremities Extremities: Tenderness, Left hip (Tender on the left lateral hip. Hip is held in extension but not rotated. 2+ distal DP pulse with brisk cap refill.), Pedal Pulses Present Results - Vitals Vitals: Vital Signs - 24 hr 12/19/21 12/19/21 18:10 18:20 Temperature 36.9 C Heart Rate 92 91 Respiratory 20 24 Rate Blood Pressure 188/96 H 188/98 H O2 Saturation 100 98 Oxygen O2 Source Room air - Rads (name of study) left hip Radiology: Final report received (No acute osseous abnormality.) PD MEDICAL DECISION MAKING - ED course Complexity details: reviewed results, considered differential, d/w patient ED course: 41-year-old female presents emergency department for evaluation of acute left hip pain. She was standing and twisted feeling her hip slightly pop out of place and then back in. She has done this before. 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 X-ray was unrevealing. Following 2 doses of analgesia as well as diazepam for muscle spasm her symptoms were markedly improved though the hip is still quite tender and she is nervous to move it. Patient is given crutches. She does have a hip brace at home. Patient is advised to have close follow-up with her primary care provider. Likely would benefit from referral to orthopedics and/or an MRI of the hip. History and exam is not consistent with a septic arthritis. Emergent return precautions were discussed for worsening symptoms. I am prescribing a short course of short-acting opioid pain medication for this patient. 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 I have discussed that the opioids are for short term therapy only, and will not be refilled from the ED. Departure - Departure Disposition: 01 Home, Self Care Clinical Impression: Left hip pain Condition: Stable Record reviewed to determine appropriate education?: Yes Prescriptions: HYDROcod/ACETAM 5/325 [[place] 5/325] 1 tablet PO BID PRN #10 tablet PRN Reason: Pain Comments: Alana scott were seen today in the emergency department for sudden left hip pain. It sounds like you may have subluxed it again. The x-ray did not show anything obvious. In general use the crutches to help you get around. Take 600 mg of ibuprofen with food 2-3 times a day. For severe pain I prescribed a limited amount of hydrocodone. In the long-term follow-up with primary care doctor is going to be important. You likely benefit from referral to an orthopedic doctor and/or MRI of the left hip. I am prescribing a short course of narcotic pain medication for you. These are potentially dangerous and addictive medications that should be used carefully. These medications may constipate you. Take an yepa-hzb-bziyjsr stool softener (docusate) twice daily with plenty of water while taking these medications. If you go 24 hours without a bowel movement, take lekj-fcs-iafgxzc miralax, per package instructions. Do not drink or drive while taking these medications. If you received narcotic or sedating medications while in the emergency department, do not drive for 24 hours. Store this medication in a safe, secure place and out of reach of children. It is a violation of federal law to give or sell this medication to another person or to use in a manner other than prescribed. The ED will not refill narcotic prescriptions, including prescriptions lost or stolen. To dispose of unwanted medications: 1. [facility] at [address] in [place] has a medication drop box. They accept prescription medications (in pill form) Wednesday through Wednesday 9:00 a.m. to 5:00 p.m. 2. [facility] accepts prescription medications (in pill form only) for disposal year round. Call for more informa tion. 3. Contact the [facility] for the next [facility] sponsored prescription drug collection event. , [phone], or [phone]; Note that many narcotic pain relievers also contain Tylenol/acetaminophen. Please ensure that your total dose of acetaminophen from all sources does not exceed 3 g (3000 mg) per day.
--- NOTE | 2021-12-19 19:06 | XRAY Report ---
PROCEDURE: Hip w/Pelvis 2-3V LT INDICATIONS: pain; ? subluxation TECHNIQUE: AP pelvis with lateral view(s) of the left hip(s). COMPARISON: July 11, 2021 FINDINGS: Prominent soft tissue attenuation of the cross table lateral view. BONES/JOINTS: No acute, displaced fracture. No widening of the pubic symphysis. The sacroiliac joints are symmetric. The femoral heads are normal ly seated within the acetabulum. SOFT TISSUES: No focal abnormality. IMPRESSION: 1.No acute osseous abnormality. Reviewed by: Kalin Schmidt MD on 12/19/2021 7:05 PM PST Approved by: Kalin Schmidt MD on 12/19/2021 7:05 PM PST Station ID: [id number]
[2021-12-19] MEDS ORDERED: HYDROmorphone 1 MG/ML CARPUJECT IVP STA (19:18)
[2021-12-19] MEDS ORDERED: HYDROcod/ACET 5/325 Prepack 4 PO STA (20:04)
[2021-12-19 20:20] VITALS: BP 141/79
== END 2021-12-19 20:23 | disposition home or self-care (01) ==
LOC: ED 17:57
DX: M25.552 Pain in left hip (principal); M62.838 Other muscle spasm; Q79.60 Ehlers-Danlos syndrome, unspecified; I10 Essential (primary) hypertension; F17.200 Nicotine dependence, unspecified, uncomplicated
CPT/HCPCS: 73502; 96372; 96374; 99282; 99283; J1170

== ENCOUNTER 2022-03-03 08:00 | Outpatient (CLI) | payer MEDICAID ==
--- NOTE | 2022-03-03 16:28 | XRAY Report ---
PROCEDURE: Shoulder 3 View RT INDICATIONS: STRAIN OF RIGHT SHOULDER TECHNIQUE: 3 views of the shoulder were acquired. COMPARISON: None. FINDINGS: Bones: There is widening of the acromioclavicular and coracoclavicular intervals. The glenohumeral khalida int is maintained. There are no fractures. No suspicious bony lesions. Visualized ribs appear intact . Soft tissues: No suspicious soft tissue calcifications. IMPRESSION: Type III AC joint separation. Reviewed by: Radha Pandya MD on 03/03/2022 4:27 PM PDT Approved by: Radha Pandya MD on 03/03/2022 4:27 PM PDT Station ID: [id number]
== END 2022-03-03 23:59 | disposition home or self-care (01) ==
LOC: DI.S 08:00
PROVIDERS: ATTEND Emergency Medicine
DX: S43.101A Unspecified dislocation of right acromioclavicular joint, initial encounter (principal)

== ENCOUNTER 2022-03-07 19:13 | Emergency (ER) | payer MEDICAID ==
[2022-03-07] MEDS ORDERED: HYDROcod/ACET 5/325 Prepack 4 PO STA (19:36)
--- NOTE | 2022-03-07 19:38 | ED Physician Documentation ---
PD HPI UPPER EXT INJURY - Stated complaint Stated Complaint: RT SHOULDER PX/NUMB - Chief complaint Chief Complaint: Ext Problem - History obtained from History obtained from: Patient - Additonal information Additional information: 41-year-old right-handed woman with history of Mika-Danlos syndrome and with recurrent shoulder issues awoke about a week ago with severe right shoulder pain and some qqfg-zaf-elgkcdb sensation in the arms. She is unable to move the shoulder. There is no specific injury. She was subsequently seen at urgent care and had an x-ray done showing a type III AC separation. She was given Robaxin which is not helpful. 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 - Present Medications Home Medications: Ambulatory Orders Medication Instructions Recorded Confirmed Randolph Centron Hip Abduction 1 unit TD ONCE #1 07/11/21 HYDROcod/ACETAM 5/325 [[place] 5/325] 1 - 2 tab PO Q6H PRN #15 tablet 07/11/21 HYDROcod/ACETAM 5/325 [[place] 5/325] 1 tablet PO BID PRN #10 tablet 12/19/21 HYDROcod/ACETAM 5/325 [[place] 5/325] 1 - 2 tab PO Q6H PRN #15 tablet 03/07/22 - Allergies Allergies/Adverse Reactions: Allergies Allergy/AdvReac Type Severity Reaction Status Date / Time azithromycin [From Zithromax] Allergy Intermediate Respiratory Verified 03/07/22 19:22 carbamazepine [From Tegretol] Allergy Intermediate Rash Verified 03/07/22 19:22 erythromycin base Allergy Intermediate Respiratory Verified 03/07/22 19:22 [Erythromycin Base] latex Allergy Intermediate Rash Verified 03/07/22 19:22 - Social History Does the pt smoke?: Yes Smoking Status: Current every day smoker Does the pt drink ETOH?: No Does the pt have substance abuse?: No - Immunizations Immunizations are current?: Yes - POLST Patient has POLST: No PD ED PE NORMAL - Vitals Vital signs reviewed: Yes - General General: Alert and oriented X 3, No acute distress - Extremities Extremities: Other (Tender over the right AC joint unable to range the shoulder. No neck tenderness. Normal neurovascular function in the forearm and hand.) - Neuro Neuro: Alert and oriented X 3, Normal speech Results - Vitals Vitals: Vital Signs - 24 hr 03/07/22 19:19 Temperature 36.4 C L Heart Rate 106 H Respiratory 18 Rate Blood Pressure 184/89 H O2 Saturation 100 Oxygen O2 Source Room air PD MEDICAL DECISION MAKING - ED course ED course: 41-year-old woman with an recollected AC separation, she is at high risk for this given her underlying connective tissue disorder. She was placed in a sling but discussed that she needs to come out of it several times a day to do gentle range of motion exercises to prevent frozen shoulder and given a limited prescription for narcotics. I am prescribing a short course of short-acting opioid pain medication for this patient. 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 I have discussed that the opioids are for short term therapy only, and will not be refilled from the ED. Departure - Departure Disposition: Home, Self Care Clinical Impression: Separation of right acromioclavicular joint, type 3 Condition: Good Record reviewed to determine appropriate education?: Yes Instructions: ED Sprain AC Joint Prescriptions: HYDROcod/ACETAM 5/325 [[place] 5/325] 1 - 2 tab PO Q6H PRN #15 tablet PRN Reason: Pain Comments: I sent your prescription electronically to [facility] in [place]. Return for new or worsening symptoms. Follow-up with orthopedics, calling Wednesday for an appointment. I am prescribing a short course of narcotic pain medication for you. These are potentially dangerous and addictive medications that should be used carefully. These medications may constipate you. Take an ntog-nib-gjmzmyy stool softener (docusate) twice daily with plenty of water while taking these medications. If you go 24 hours without a bowel movement, take txqx-gmu-akgmldd miralax, per package instructions. Do not drink or drive while taking these medications. If you received narcotic or sedating medications while in the emergency department, do not drive for 24 hours. Store this medication in a safe, secure place and out of reach of children. It is a violation of federal law to give or sell this medication to another person or to use in a manner other than prescribed. The ED will not refill narcotic prescriptions, including prescriptions lost or stolen. To dispose of unwanted medications: 1. [facility] at [address] in [place] has a medication drop box. They accept prescription medications (in pill form) Wednesday through Wednesday 9:00 a.m. to 5:00 p.m. 2. The [facility] accepts prescription medications (in pill form only) for disposal year round. Call for more information. 3. Contact the [facility] for the next [facility] sponsored prescription drug collection event. , [id number], or [phone]; Note that many narcotic pain relievers also contain Tylenol/acetaminophen. Please ensure that your total dose of acetaminophen from all sources does not exceed 3 g (3000 mg) per day. Forms: Activity restrictions
[2022-03-07 19:58] VITALS: BP 140/88
== END 2022-03-07 19:57 | disposition home or self-care (01) ==
LOC: ED 19:13
DX: S43.101A Unspecified dislocation of right acromioclavicular joint, initial encounter (principal); Q79.60 Ehlers-Danlos syndrome, unspecified; F17.200 Nicotine dependence, unspecified, uncomplicated
CPT/HCPCS: 99282; 99283

== ENCOUNTER 2022-03-10 17:40 | Outpatient (CLI) | payer MEDICAID ==
--- NOTE | 2022-03-11 15:33 | XRAY Report ---
PROCEDURE: Cervical Spine 2 View INDICATIONS: Right cervical root neuropathy TECHNIQUE: 3 view(s) of the cervical spine were acquired. COMPARISON: X-ray cervical spine 04/12/2009 FINDINGS: Bones: No fractures or dislocations to the C7-T1 level. The lateral masses of C1 appear intact on t he odontoid view. No suspicious bony lesions. There is an overall appearance of cervical straighten ing. Minimal disc space narrowing is present at C5-6. Soft tissues: No prevertebral soft tissue swelling. IMPRESSION: Cervical straightening with minimal disc space narrowing at C5-6. Reviewed by: Nereyda Alicea MD on 03/11/2022 3:32 PM PDT Approved by: Nereyda Alicea MD on 03/11/2022 3:32 PM PDT Station ID: [id number]
== END 2022-03-10 17:41 | disposition home or self-care (01) ==
LOC: DI.S 17:40
PROVIDERS: ATTEND Physician Assistant
DX: G54.2 Cervical root disorders, not elsewhere classified (principal); Q79.60 Ehlers-Danlos syndrome, unspecified; M48.02 Spinal stenosis, cervical region

== ENCOUNTER 2023-06-28 17:58 | Emergency (ER) | payer MEDICAID ==
[2023-06-28 18:12] VITALS: O2SAT 98
[2023-06-28] MEDS ORDERED: oxyCODONE 5 MG TABLET PO STA (19:10)
[2023-06-28] MEDS ORDERED: DEXAMETHASONE 10 MG/ML VIAL PO STA (19:10)
--- NOTE | 2023-06-28 19:21 | ED Physician Documentation ---
History of Present Illness - Stated complaint Stated Complaint: BILAT HIP PX - Chief complaint Chief Complaint: Ext Problem - History obtained from History obtained from: Patient - History of Present Illness Timing: How many weeks ago (several weeks) Pain level max: 7 Pain level now: 7 - Additonal information Additional information: 42-year-old female with chronic bilateral hip pain that radiates down the legs, right greater than left. This been ongoing for several years. She states that every once in a while it flares and she comes in for pain medication. Patient states that she has a history of sacroiliitis. No fevers. No chills. Has an appointment with her PCP this week. 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 - Present Medications Home Medications: Ambulatory Orders Medication Instructions Recorded Confirmed [place] Centron Hip Abduction 1 unit TD ONCE #1 07/11/21 HYDROcod/ACETAM 5/325 [[place] 5/325] 1 - 2 tab PO Q6H PRN #15 tablet 07/11/21 HYDROcod/ACETAM 5/325 [[place] 5/325] 1 tablet PO BID PRN #10 tablet 12/19/21 HYDROcod/ACETAM 5/325 [[place] 5/325] 1 - 2 tab PO Q6H PRN #15 tablet 03/07/22 Oxycodone HCl/Acetaminophen 1 - 2 each PO Q6H PRN #20 tablet 06/28/23 [Percocet 5-325 mg Tablet] MDD 6 tabs methylPREDNISolone [Medrol] 4 mg PO DAILY #1 tab 06/28/23 - Allergies Allergies/Adverse Reactions: Allergies Allergy/AdvReac Type Severity Reaction Status Date / Time azithromycin [From Zithromax] Allergy Intermediate Respiratory Verified 06/28/23 18:04 carbamazepine [From Tegretol] Allergy Intermediate Rash Verified 06/28/23 18:04 erythromycin base Allergy Intermediate Respiratory Verified 06/28/23 18:04 [Erythromycin Base] latex Allergy Intermediate Rash Verified 06/28/23 18:04 - Social History Does the pt smoke?: Yes Smoking Status: Current every day smoker Does the pt drink ETOH?: No Does the pt have substance abuse?: No - Immunizations Immunizations are current?: Yes - POLST Patient has POLST: No PD ED PE NORMAL - Vitals Vital signs reviewed: Yes - General General: Alert and oriented X 3, No acute distress, Well developed/nourished - HEENT HEENT: Moist mucous membranes - Neck Neck: Supple, no meningeal sign - Cardiac Cardiac: RRR, Strong equal pulses - Respiratory Respiratory: No respiratory distress, Clear bilaterally - Abdomen Abdomen: Soft, Non tender, Non distended - Back Back: No spinal TTP, Other (Tender to palpation over the bilateral SI joints. No midline tenderness palpation or percussion. No step-off or deformity.) - Derm Derm: Warm and dry - Neuro Neuro: Alert and oriented X 3, No motor deficit, No sensory deficit, Other (Normal bilateral lower extremity patellar and ankle jerk reflexes. Normal great toe extension bilaterally. no saddle anesthesia) - Psych Psych: Normal mood, Normal affect Results - Vitals Vitals: Vital Signs - 24 hr 06/28/23 06/28/23 18:04 19:38 Temperature 36.5 C Heart Rate 90 83 Respiratory 18 18 Rate Blood Pressure 150/90 H 138/77 H O2 Saturation 98 98 Oxygen O2 Source Room air PD Medical Decision Making - ED course Complexity details: considered differential, d/w patient ED course: Patient with what appears to be a flare of her known sacroiliitis. No evidence of cauda equina or epidural abscess. No trauma. No indication for emergent neuroimaging. We will place on pain medication and steroids for home. We will have her follow-up with her doctor for further care. Patient counseled regarding signs and symptoms for which I believe and urgent re-evaluation would be necessary. Patient with good understanding of and agreement to plan and is comfortable going home at this time This document was made in part using voice recognition software. While efforts are made to proofread this document, sound alike and grammatical errors may occur. Departure - Departure Disposition: 01 Home, Self Care Clinical Impression: Bilateral sacroiliitis Condition: Good Instructions: ED Sacroiliitis Follow-Up: JOSE L MCDOWELL DO [Primary Care Provider] - Within 3 Days Prescriptions: methylPREDNISolone [Medrol] 4 mg PO DAILY #1 tab Oxycodone HCl/Acetaminophen [Percocet 5-325 mg Tablet] 1 - 2 each PO Q6H PRN #20 tablet MDD 6 tabs PRN Reason: pain Comments: Your prescriptions were sent to [facility] in [place]. Please follow-up with your doctor for further care. Please return if you worsen. I am prescribing a short course of narcotic pain medication for you. These are potentially dangerous and addictive medications that should be used carefully. These medications may constipate you. Take an fxef-xyr-nonzjkv stool softener (docusate) twice daily with plenty of water while taking these medications. If you go 24 hours without a bowel movement, take fdsu-vpr-mumvrot miralax, per package instructions. Do not drink or drive while taking these medications. If you received narcotic or sedating medications while in the emergency department, do not drive for 24 hours. Store this medication in a safe, secure place and out of reach of children. It is a violation of federal law to give or sell this medication to another person or to use in a manner other than prescribed. The ED will not refill narcotic prescriptions, including prescriptions lost or stolen. To dispose of unwanted medications: 1. [facility] [address] in [place] has a medication drop box. They accept prescription medications (in pill form) Wednesday through Wednesday 9:00 a.m. to 5:00 p.m. 2. The [facility] accepts prescription medications (in pill form only) for disposal year round. Call for more information. 3. Contact the [facility] for the next [facility] sponsored prescription drug collection event. , [phone], or [phone]; Forms: PCP List Discharge Date/Time: 06/28/23 19:45
[2023-06-28 19:52] VITALS: BP 138/77
== END 2023-06-28 19:45 | disposition home or self-care (01) ==
LOC: ED 17:58
DX: M46.1 Sacroiliitis, not elsewhere classified (principal); F17.200 Nicotine dependence, unspecified, uncomplicated
CPT/HCPCS: 99282; 99283; A9270

== ENCOUNTER 2024-03-25 12:13 | Emergency (ER) | payer MEDICAID ==
[2024-03-25 12:36] VITALS: BP 130/80; O2SAT 97
--- NOTE | 2024-03-25 14:12 | ED Physician Documentation ---
History of Present Illness - Stated complaint Stated Complaint: RT TOOTH PX/SWELLING - Chief complaint Chief Complaint: Trauma Hd/Nk - Additonal information Additional information: 43-year-old female with very poor overall dentition presents emergency department for right dental pain. Patient says it started about 3 to 4 days ago she says that she knows she needs multiple teeth pulled as she has multiple broken teeth but she says that she has a severe dental phobia prohibiting her from going to the dentist. She has not any fevers or chills she does feel like she has some enlarged lymph nodes surrounding her broken tooth is hoping to get started on antibiotics. 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 - Present Medications Home Medications: Ambulatory Orders Medication Instructions Recorded Confirmed [place] Centron Hip Abduction 1 unit TD ONCE #1 07/11/21 HYDROcod/ACETAM 5/325 [[place] 5/325] 1 - 2 tab PO Q6H PRN #15 tablet 07/11/21 HYDROcod/ACETAM 5/325 [[place] 5/325] 1 tablet PO BID PRN #10 tablet 12/19/21 HYDROcod/ACETAM 5/325 [[place] 5/325] 1 - 2 tab PO Q6H PRN #15 tablet 03/07/22 Oxycodone HCl/Acetaminophen 1 - 2 each PO Q6H PRN #20 tablet 06/28/23 [Percocet 5-325 mg Tablet] MDD 6 tabs methylPREDNISolone [Medrol] 4 mg PO DAILY #1 tab 06/28/23 Amox/Clav 875/125 [Augmentin 1 tablet PO Q12H 10 Days #20 tablet 03/25/24 875/125 Tab] Oxycodone HCl/Acetaminophen 1 each PO Q8HR PRN #8 tablet 03/25/24 [Percocet 5-325 mg Tablet] - Allergies Allergies/Adverse Reactions: Allergies Allergy/AdvReac Type Severity Reaction Status Date / Time azithromycin [From Zithromax] Allergy Intermediate Respiratory Verified 06/28/23 18:04 carbamazepine [From Tegretol] Allergy Intermediate Rash Verified 06/28/23 18:04 erythromycin base Allergy Intermediate Respiratory Verified 06/28/23 18:04 [Erythromycin Base] latex Allergy Intermediate Rash Verified 06/28/23 18:04 adhesive Allergy Rash Verified 03/25/24 12:32 - Social History Does the pt smoke?: Yes Smoking Status: Current every day smoker Does the pt drink ETOH?: No Does the pt have substance abuse?: No - Immunizations Immunizations are current?: Yes - POLST Patient has POLST: No PD ED PE NORMAL - Vitals Vital signs reviewed: Yes - General General: Alert and oriented X 3, Well developed/nourished, Other (Patient is tearful throughout exam) PD ED PE EXPANDED - HEENT HEENT: Moist mucous membranes, Dental decay, Dental abscess. No: Swollen tonsils, Tonsillar exudate, Soft palate petecchiae (right facial swelling), Dentition normal Results - Vitals Vitals: Vital Signs - 24 hr 03/25/24 12:28 Temperature 36.9 C Heart Rate 102 H Respiratory 18 Rate Blood Pressure 130/80 O2 Saturation 97 Oxygen O2 Source Room air PD Medical Decision Making - ED course ED course: Patient presents for dental pain due to suspected dental abscess. Patient not immunosuppressed, afebrile and well appearing with patent airway, have low suspicfion for deep space infection or any concern for airway compromise. Based on history, physical, and work up. No evidence of avulsion, or bleeding socket. No evidence of RPA, CHEMICAL RADIATION TECHNICIAN, [place] angina, periapical abscess. Offered patient dental nerve block for pain which patient declined. Instructed patient to continue to treat pain with ibuprofen/acetaminophen until they see a dentist. Patient started on Augmentin in the emergency department. Patient discharged home and will follow up with dentist, [facility] dental clinic phone number was given to the patient. Discussed return precautions for odontogenic infections and other dental pain emergencies. I am prescribing a short course of short-acting opioid pain medication for this patient. 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 I have discussed that the opioids are for short term therapy only, and will not be refilled from the ED. Departure - Departure Disposition: 01 Home, Self Care Clinical Impression: Dental infection Instructions: Phobias Specific, ED Abscess Dental Prescriptions: Oxycodone HCl/Acetaminophen [Percocet 5-325 mg Tablet] 1 each PO Q8HR PRN #8 tablet PRN Reason: Pain >8 Amox/Clav 875/125 [Augmentin 875/125 Tab] 1 tablet PO Q12H 10 Days #20 tablet Comments: Thank you for trusting us with your care. I would strongly encourage you to follow-up with [facility] dental clinic for further evaluation of your broken teeth. Their phone number is [phone] you can let them know that you have a dental phobia and they are great and are willing to help accommodate what ever they need to help get you the support that you need. I have started you on an antibiotic called Augmentin. Please come back to the emergency department for further evaluation if you are noticing any fevers or chills, worsening dental infection, difficulty breathing or worsening swelling. Wishing you a speedy recovery. I am prescribing a short course of narcotic pain medication for you. These are potentially dangerous and addictive medications that should be used carefully. These medications may constipate you. Take an axwg-jpz-eyjehfb stool softener (docusate) twice daily with plenty of water while taking these medications. If you go 24 hours without a bowel movement, take ncip-nva-hcjbbrx miralax, per package instructions. Do not drink or drive while taking these medications. If you received narcotic or sedating medications while in the emergency department, do not drive for 24 hours. Store this medication in a safe, secure place and out of reach of children. It is a violation of federal law to give or sell this medication to another person or to use in a manner other than prescribed. The ED will not refill narcotic prescriptions, including prescriptions lost or stolen. To dispose of unwanted medications: 1. [facility] at [address] in [place] has a medication drop box. They accept prescription medications (in pill form) Wednesday through Wednesday 9:00 a.m. to 5:00 p.m. 2. The [facility] [employer] accepts prescription medications (in pill form only) for disposal year round. Call for more information. 3. Contact the [facility] for the next [facility] sponsored prescription drug collection event. , [phone], or [phone]; Note that many narcotic pain relievers also contain Tylenol/acetaminophen. Please ensure that your total dose of acetaminophen from all sources does not exceed 3 g (3000 mg) per day. Forms: PCP List Discharge Date/Time: 03/25/24 14:46
[2024-03-25] MEDS: AMOX/CLAV 875 MG/125 MG TABLET PO STA (14:29)
== END 2024-03-25 14:46 | disposition home or self-care (01) ==
LOC: ED 12:13
DX: K04.7 Periapical abscess without sinus (principal); F40.8 Other phobic anxiety disorders; F17.200 Nicotine dependence, unspecified, uncomplicated
CPT/HCPCS: 99283; 99284; A9270